=== PATIENT | female | born 1955 | race Asian ===

== ENCOUNTER 2017-09-13 22:18 | Emergency (ER) | payer OTHER ==
[2017-09-13] MEDS ORDERED: Fluorescein Opthalmic Strip ONE (22:41)
[2017-09-13] MEDS ORDERED: Proparacaine 0.5% Opth 15 ML BOT ONE (22:41)
[2017-09-14 00:23] LABS: Anion Gap 13 mmol/L (10-20); BUN (Urea Nitrogen) 15 mg/dL (9.8-20.1); Calc. Creatinine Clearance 0 mL/min (70-130); Calcium 9.6 mg/dL (7.8-10.44); Carbon Dioxide 27 mmol/L (23-31); Chloride 103 mmol/L (98-107); Estimated GFR-MDRD 77; Glucose 162 mg/dL (80-115); Potassium 3.6 mmol/L (3.5-5.1); Sodium 139 mmol/L (136-145)
== END 2017-09-14 00:42 | disposition home or self-care (01) ==
LOC: ERS 22:18
DX: S05.02XA Injury of conjunctiva and corneal abrasion without foreign body, left eye, initial encounter (principal); W22.8XXA Striking against or struck by other objects, initial encounter
CPT/HCPCS: 80048; 99283

== ENCOUNTER 2017-09-24 15:36 | Emergency (ER) | payer OTHER ==
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
[2017-09-24] MEDS ORDERED: Acetaminophen 500 MG TAB ONE (17:45)
[2017-09-24 18:30] LABS: #Basophils 0.1 thou/uL (0.0-0.2); #Eosinphils 0.1 thou/uL (0.0-0.7); #Lymphocytes 1.9 thou/uL (1.20-3.40); #Monocytes 0.3 thou/uL (0.11-0.59); #Neutrophils 6.6 thou/uL (1.40-6.50); %Basophils 0.6 % (0.0-1.0); %Eosinophils 0.9 % (0.0-10.0); %Lymphocytes 21.3 % (21.0-51.0); %Monocytes 3.7 % (0.0-10.0); %Neutrophils 73.5 % (42.0-75.0); Hemoglobin 14.5 g/dL (12.0-16.0); Mean Corpuscular HGB CONC 32.5 g/dL (32.0-36.0); Mean Corpuscular Hemoglobin 31.1 pg (27.0-31.0); Mean Corpuscular Volume 95.6 fl (81.0-99.0); Mean Platelet Volume 9.1 fL (7.4-10.4); Platelet Count 213 thou/uL (130-400); RBC Distribution Width 11.7 % (11.5-14.5); Red Blood Cell (RBC) Count 4.68 mill/uL (4.20-5.40)
[2017-09-24 18:59] LABS: ALT (SGPT) 36 U/L (8-55); AST (SGOT) 27 U/L (5-34); Albumin 4.2 g/dL (3.4-4.8); Alkaline Phosphatase 123 U/L (40-150); Anion Gap 12 mmol/L (10-20); BUN (Urea Nitrogen) 22 mg/dL (9.8-20.1); Bilirubin, Total 0.4 mg/dL (0.2-1.2); Calc. Creatinine Clearance 0 mL/min (70-130); Calcium 9.9 mg/dL (7.8-10.44); Carbon Dioxide 23 mmol/L (23-31); Chloride 105 mmol/L (98-107); Estimated GFR-MDRD 77; Globulin 3.7 g/dL (2.4-3.5); Glucose 123 mg/dL (80-115); Potassium 3.9 mmol/L (3.5-5.1); Protein, Total 7.9 g/dL (6.0-8.3); Sodium 136 mmol/L (136-145)
[2017-09-24 19:01] LABS: CKMB 2.8 ng/mL (0-6.6); Troponin I 0.028 ng/mL (< 0.028)
--- NOTE | 2017-09-29 13:29 | EKG ---
Test Reason : Blood Pressure : / mmHG Vent. Rate : 091 BPM Atrial Rate : 091 BPM P-R Int : 172 ms QRS Dur : 080 ms QT Int : 360 ms P-R-T Axes : 049 001 025 degrees QTc Int : 442 ms Normal sinus rhythm Inferior infarct , age undetermined Abnormal ECG Confirmed by NETTA AGUILAR M.D. ([id number]), news assignment editor WILMER BUSCH ([id number]) on 09/29/2017 1:29:05 PM Referred By: Confirmed By:NETTA AGUILAR M.D.
== END 2017-09-24 19:27 | disposition home or self-care (01) ==
LOC: ERS 15:36
DX: R07.9 Chest pain, unspecified (principal); V44.5XXA Car driver injured in collision with heavy transport vehicle or bus in traffic accident, initial encounter
CPT/HCPCS: 36415; 71046; 80053; 82553; 84484; 85025; 93005